=== PATIENT | male | born 1975 | race Caucasian/White ===

== ENCOUNTER 2019-03-30 16:58 | Observation (INO) | payer BC, SELFPAY ==
[2019-03-30 16:58] VITALS: BP 165/98; PULSE 89; RESP 16; TEMP 37.2; O2SAT 97; BMI 35.6
--- NOTE | 2019-03-30 17:14 | EKG12_ITS ---
Test Reason : ABN LABS Blood Pressure : / mmHG Vent. Rate : 083 BPM Atrial Rate : 083 BPM P-R Int : 144 ms QRS Dur : 108 ms QT Int : 360 ms P-R-T Axes : 030 055 048 degrees QTc Int : 423 ms Normal sinus rhythm Poor R wave progression Confirmed by QUANG BARLOW, NADIR ([id number]), publishing editor RITA MENSAH ([id number] on 04/03/2019 6:26:30 AM Referred By: Nadir Pinzon Confirmed By:NADIR DEL RIO MD
--- NOTE | 2019-03-30 17:17 | RAD_ITS ---
STUDY: X-RAY CHEST REASON FOR EXAM: Male, 43 years old. Abnormal enzymes. TECHNIQUE: Single AP portable view of the chest. COMPARISON: None. FINDINGS: The lungs are clear and expanded. There is no demonstrated pleural abnormality. Normal size heart. Normal mediastinum and jayne. Normal visualized pulmonary arteries. Normal visualized aortic arch and descending thoracic aorta. Normal visualized thoracic spine. Normal visualized ribs, clavicles, and shoulders. There is no demonstrated abnormality of the visualized soft tissue structures of the upper abdomen. RAD/Chest 1 View (Portable) IMPRESSION: Normal x-ray examination of the chest. Electronically Signed: Myke Jimenez MD at 17:33 EDT , Service support ,
[2019-03-30 17:36] VITALS: BP 161/97; PULSE 87; RESP 22; O2SAT 96
[2019-03-30] MEDS: Aspirin 81 MG TAB.CHEW 324 MG PO (17:44)
[2019-03-30 17:56] LABS: Absolute Lymphocyte Count 4.74 X10^3/ul (0.83-4.51); Absolute Neutrophil Count 10.3 X10^3/uL (2.0-7.7); Basophil# 0.06 X10^3/uL; Basophil% 0.4 % (0-1); Eosinophil# 0.18 X10^3/uL; Eosinophils% 1.1 % (0-5); Hematocrit 46.9 % (40-54); Hemoglobin 16.4 g/dl (13.0-16.5); Lymphocyte # 4.74 X10^3/ul (4.0); Lymphocyte % 28.7 % (19-41); Mean Corpuscular Hgb 34.2 pg (27.0-32.0); Mean Corpuscular Volume 97.9 fL (80-94); Mean Platelet Vol. 10.5 fl (6.2-12.0); Monocyte# 1.24 X10^3/uL; Monocyte% 7.5 % (0-10); Neutrophil # 10.27 X10^3/uL (2.7-7.7); Neutrophil % 62.1 % (47-70); Platelet Count 286 K/mm3 (150-450); RBC Distribution Width CV 12.8 % (11.6-14.6); RBC Distribution Width SD 45.9 fl (35.1-43.9); Red Blood Count 4.79 M/mm3 (4.6-6.2); White Blood Count 16.5 K/mm3 (4.4-11.0)
[2019-03-30 18:00] LABS: POSITIVE COUNT NO; POSITIVE DIFFERENTIAL NO; POSITIVE MORPHOLOGY NO
[2019-03-30 18:11] LABS: CPK Total, Creatine Kinase 444 U/L (39-308)
--- NOTE | 2019-03-30 18:24 | ED.DCSUM_ITS ---
History of Present Illness Chief Complaint: Abn Labs Informant: Patient Narrative: Patient is presenting from the primary care office secondary to an abnormal lab result. Patient reports that he woke up today and he had a strange feeling. He reports that it is in his lower chest and upper abdomen. He would does not really describe it as a pain, but more just an abnormal feeling. Patient states that this has been persistent throughout the day today, he tried to eat some food and it did not really go away, so he left work and went to urgent care and they recommended that he go see his primary care doctor. Primary care doctor worked the patient up with an EKG and some lab work, lab work showed evidence of an elevated CK, but showed a normal troponin and to the primary care physician recommended the patient come to the emergency department for potential observation admission and stress testing. Patient denies that there is any exertional component to this. He denies any prior similar episodes in the past. Patient is a smoker, denies any premature family history of heart disease, hypertension, diabetes, any DVT or PE risk factors. He is never had a stress test. Review of systems otherwise negative. Past Medical History - Allergies and Home Meds Allergies/Adverse Reactions: Allergies No Known Allergies Allergy (Verified 03/30/19 17:00) Smoking Status: Current every day smoker - Family History Maternal Family History: Reports: No pertinent history Review of Systems All systems negative except as indicated Cardiovascular: Reports: Chest pain Respiratory: Denies: Dyspnea Physical Exam Vital Signs/Narrative: Vital Signs Temp Pulse Resp BP Pulse Ox 03/30/19 17:36 87 22 H 161/97 H 96 03/30/19 16:58 98.9 F 89 16 165/98 H 97 Inital Vital Signs reviewed: Yes General: Well nourished, Well developed, No Acute Distress Head: Normocephalic, Atraumatic Eyes: Perrl, EOMI ENT: Moist mucous membranes, No rhinorrhea Neck: Supple, Nontender Cardiovascular: Regular rate, Regular rhythm, No murmurs, - - 2+ radial pulses bilaterally symmetric Respiratory: No distress, CTA bilaterally, Chest nontender Abdomen: Soft, Nontender, Nondistended, Normal bowel sounds Back: Nontender, Normal Inspection Extremities: Nontender, No edema Skin: Normal color, No rash Neurological: Alert, Oriented x3, Cranial nerves II-XII grossly intact, Normal Strength, Normal Sensation Psychological: Normal affect, Normal Mood Diagnostic/Tx/Re-eval - EKG Initial EKG Interpretation: - - Sinus rhythm of [address] segments, normal T waves, no evidence of acute ischemia or arrhythmia - Medical Decision Making Patient presented secondary to chest pain. Chest pain work-up was obtained, the patient is an outpatient had an elevated CK this was repeated and was found to be downward trending. Patient's EKG shows no ischemic signs. Patient's heart score is 2, but his primary care physician requested that he be admitted for cardiac stress test. I discussed this with the hospitalist, and the patient was admitted for observation. Disposition: Admit to PCU ED Disposition - Plan for ED Patient: Disposition: Acute Care Hospital [facility] Diagnosis: Chest pain
[2019-03-30 18:36] LABS: ALB/GLOB Ratio 0.9 RATIO (0.9-2.4); AST(SGOT) 32 U/L (15-37); Alanine Aminotransfer ALT/SGPT 49 U/L (16-61); Albumin, Serum 3.7 g/dL (3.2-5.0); Alkaline Phosphatase 106 U/L (45-117); Anion Gap 11 (5-15); BUN 11 mg/dL (7-18); BUN/Creat Ratio 11.7 RATIO (10-20); Chloride 106 mmol/L (98-107); Creatinine, Serum 0.94 mg/dL (0.70-1.30); EST Glomerular Filtration Rate 93 mL/min (>60); Est Glom Filt Rate - Afr Amer 112 mL/min (>60); Estimated Creatinine Clearance 104.62 ml/min; Globulin 4.2 g/dL (2.2-4.2); Glucose 84 mg/dL (74-106); Lipase 179 U/L (73-393); Potassium 3.9 mmol/L (3.5-5.1); Protein, Total 7.9 g/dL (6.4-8.2); Sodium Level 140 mmol/L (136-145)
[2019-03-30 19:00] VITALS: BP 145/103; PULSE 78; RESP 26; O2SAT 97
--- NOTE | 2019-03-30 19:32 | PCM.HP.STD ---
Problem List (1) Chest pain Status: Acute Qualifiers: Chest pain type: unspecified Qualified Code(s): R07.9 - Chest pain, unspecified (2) Smoker Status: Chronic History of Present Illness Date of Admission: 03/30/19 Chief Complaint: chest pain, elevated CK The patient is a 43 year old male patient with a past medical history of smoking half pack per day who presents to the emergency room via his primary care physician who had detected abnormal labs of CK in the excess of 500 today. He was sent to the emergency department for observation and admission and possible stress testing. He states he has had some abnormal stress over the past few days but does not elaborate. He describes his pain as lower chest nonradiating and he has difficulty characterizing how it feels. He did spend Saturday evening at a [employer] drinking alcohol and admitted to being dehydrated and fatigued Saturday morning. In the emergency the patient is borderline hypertensive but has not received treatment for this in the past. Initial troponin value is less than 0.015, CBC shows white count elevation of 16,000 the patient is afebrile and chest x-ray is within normal limits. Patient will be placed on observation cycle troponins and stress test done in the morning. Past Medical History Past Medical History (Chronic Problems): Chronic Problems Smoker (Chronic) Allergies No Known Allergies Allergy (Verified 03/30/19 17:00) Home Medications: Ambulatory Orders Medication Instructions Recorded Ranitidine [Zantac] 150 mg PO DAILY 03/30/19 Smoking Status: Current every day smoker - *Family History Maternal History Items: No pertinent history Review of Systems Constitutional: Denies: Chills, Fever, Weight Change HEENT: Denies: Head Aches, Sinus Congestion, Sinus Drainage Cardiovascular: Reports: Chest Pain. Denies: Palpitations Respiratory: Denies: Cough, Shortness of breath at rest, Sputum production Gastrointestinal: Denies: Abdominal Pain, Nausea, Vomiting Genitourinary: Denies: Dysuria Musculoskeletal: Denies: Joint Pain, Joint Tenderness Skin: Denies: Rash, Wounds Neurological: Denies: Numbness, Tingling, Focal weakness Psychiatric: Denies: Anxiety, Depression, Homicidal Ideations, Suicidal Ideations Hematologic/ Lymphatic: Denies: Easy Bruising, Easy Bleeding VTE Information - Inpt Only VTE Present on Admission: No VTE Mechan Device Prophylaxis: None VTE Pharm Prophylaxis ordered?: Yes Patient Problems: Active and Suspected Problems Chest pain (Acute) - Physical Exam General: Alert, Oriented x3, Cooperative HEENT: Atraumatic, Normocephalic Neck: Supple Lungs: Clear to auscultation, Normal air movement Cardiovascular: Regular rate, Normal S1, Normal S2, No murmurs Abdomen: Bowel Sounds Present, Soft, Non Tender Extremities: No edema Skin: No rashes Musculoskeletal: No Tenderness to Palpation of Joints or Extremities Neurological: Neuro grossly intact Psych/Mental Status: Normal Affect, Appropriate Vital Signs Temp Pulse Resp BP Pulse Ox 98.9 F 78 26 H 145/103 H 97 03/30/19 16:58 03/30/19 19:00 03/30/19 19:00 03/30/19 19:00 03/30/19 19:00 Oxygen Delivery Method Room Air Weight: 248 lb 14.43 oz Body Mass Index (BMI) 35.6 Laboratory Tests Past 24 Hrs 03/30/19 03/30/19 03/30/19 17:30 17:30 17:30 WBC 16.5 H RBC 4.79 Hgb 16.4 Hct 46.9 MCV 97.9 H MCH 34.2 H MCHC 35.0 RDW 12.8 RDW Differential 45.9 H Plt Count 286 MPV 10.5 Immature Gran % (Auto) 0.200 Neut % (Auto) 62.1 Lymph % (Auto) 28.7 [place] % (Auto) 7.5 Eos % (Auto) 1.1 Baso % (Auto) 0.4 Absolute Neuts (auto) 10.3 H Absolute Lymphs (auto) 4.74 H Total Counted Not Reportable Sodium 140 Potassium 3.9 Chloride 106 Carbon Dioxide 23.0 Anion Gap 11 BUN 11 Creatinine 0.94 Estim Creat Clear Calc 104.62 Est GFR (MDRD) Af Amer 112 Est GFR (MDRD) Non-Af 93 BUN/Creatinine Ratio 11.7 Glucose 84 Calcium 9.0 Total Bilirubin 0.30 AST 32 ALT 49 Alkaline Phosphatase 106 Total Creatine Kinase 444 H Troponin I < 0.015 Total Protein 7.9 Albumin 3.7 Globulin 4.2 Albumin/Globulin Ratio 0.9 Lipase 179 Assessment/Plan All Active Problems Chest pain (Acute) Chronic conditions 1. Smoker half pack per day Plan 1. Chest pain?Place patient on observation floor cycle troponins. Will order oxygen nitroglycerin and aspirin per protocol. I do not feel morphine is warranted at this time. I explained to the patient the procedure for a nuclear stress test and what to expect in the morning. When troponins are negative nuclear stress testing will be done and if negative patient will be discharged home. 2. Smoking?cessation for smoking was encouraged 3. DVT prophylaxis?low molecular weight heparin has been ordered 4. Borderline hypertensive?advised patient to seek outpatient follow-up care for his possibility of having hypertension. Code Visit OBSV E&M: [id number] Initial observation care L2
--- NOTE | 2019-03-30 19:36 | HP.PCM_ITS ---
Problem List (1) Chest pain Status: Acute Qualifiers: Chest pain type: unspecified Qualified Code(s): R07.9 - Chest pain, unspecified (2) Smoker Status: Chronic History of Present Illness Date of Admission: 03/30/19 Chief Complaint: chest pain, elevated CK The patient is a 43 year old male patient with a past medical history of smoking half pack per day who presents to the emergency room via his primary care physician who had detected abnormal labs of CK in the excess of 500 today. He was sent to the emergency department for observation and admission and possible stress testing. He states he has had some abnormal stress over the past few days but does not elaborate. He describes his pain as lower chest nonradiating and he has difficulty characterizing how it feels. He did spend Saturday evening at a [employer] drinking alcohol and admitted to being dehydrated and fatigued Saturday morning. In the emergency the patient is borderline hypertensi ve but has not received treatment for this in the past. Initial troponin value is less than 0.015, CBC shows white count elevation of 16,000 the patient is afebrile and chest x-ray is within normal limits. Patient will be placed on observation cycle troponins and stress test done in the morning. Past Medical History Past Medical History (Chronic Problems): Chronic Problems Smoker (Chronic) Allergies No Known Allergies Allergy (Verified 03/30/19 17:00) Home Medications: Ambulatory Orders Medication Instructions Recorded Ranitidine [Zantac] 150 mg PO DAILY 03/30/19 Smoking Status: Current every day smoker - *Family History Maternal History Items: No pertinent history Review of Systems Constitutional: Denies: Chills, Fever, Weight Change HEENT: Denies: Head Aches, Sinus Congestion, Sinus Drainage Cardiovascular: Reports: Chest Pain. Denies: Palpitations Respiratory: Denies: Cough, Shortness of breath at rest, Sputum production Gastrointestinal: Denies: Abdominal Pain, Nausea, Vomiting Genitourinary: Denies: Dysuria Musculoskeletal: Denies: Joint Pain, Joint Tenderness Skin: Denies: Rash, Wounds Neurological: Denies: Numbness, Tingling, Focal weakness Psychiatric: Denies: Anxiety, Depression, Homicidal Ideations, Suicidal Ideations Hematologic/ Lymphatic: Denies: Easy Bruising, Easy Bleeding VTE Information - Inpt Only VTE Present on Admission: No VTE Mechan Device Prophylaxis: None VTE Pharm Prophylaxis ordered?: Yes Patient Problems: Active and Suspected Problems Chest pain (Acute) - Physical Exam General: Alert, Oriented x3, Cooperative HEENT: Atraumatic, Normocephalic Neck: Supple Lungs: Clear to auscultation, Normal air movement Cardiovascular: Regular rate, Normal S1, Normal S2, No murmurs Abdomen: Bowel Sounds Present, Soft, Non Tender Extremities: No edema Skin: No rashes Musculoskeletal: No Tenderness to Palpation of Joints or Extremities Neurological: Neuro grossly intact Psych/Mental Status: Normal Affect, Appropriate Vital Signs Temp Pulse Resp BP Pulse Ox 98.9 F 78 26 H 145/103 H 97 03/30/19 16:58 03/30/19 19:00 03/30/19 19:00 03/30/19 19:00 03/30/19 19:00 Oxygen Delivery Method Room Air Weight: 248 lb 14.43 oz Body Mass Index (BMI) 35.6 Laboratory Tests Past 24 Hrs 03/30/19 03/30/19 03/30/19 17:30 17:30 17:30 WBC 16.5 H RBC 4.79 Hgb 16.4 Hct 46.9 MCV 97.9 H MCH 34.2 H MCHC 35.0 RDW 12.8 RDW Differential 45.9 H Plt Count 286 MPV 10.5 Immature Gran % (Auto) 0.200 Neut % (Auto) 62.1 Lymph % (Auto) 28.7 [place] % (Auto) 7.5 Eos % (Auto) 1.1 Baso % (Auto) 0.4 Absolute Neuts (auto) 10.3 H Absolute Lymphs (auto) 4.74 H Total Counted Not Reportable Sodium 140 Potassium 3.9 Chloride 106 Carbon Dioxide 23.0 Anion Gap 11 BUN 11 Creatinine 0.94 Estim Creat Clear Calc 104.62 Est GFR (MDRD) Af Amer 112 Est GFR (MDRD) Non-Af 93 BUN/Creatinine Ratio 11.7 Glucose 84 Calcium 9.0 Total Bilirubin 0.30 AST 32 ALT 49 Alkaline Phosphatase 106 Total Creatine Kinase 444 H Troponin I < 0.015 Total Protein 7.9 Albumin 3.7 Globulin 4.2 Albumin/Globulin Ratio 0.9 Lipase 179 Assessment/Plan All Active Problems Chest pain (Acute) Chronic conditions 1. Smoker half pack per day Plan 1. Chest pain?Place patient on observation floor cycle troponins. Will order oxygen nitroglycerin and aspirin per protocol. I do not feel morphine is warranted at this time. I explained to the patient the procedure for a nuclear stress test and what to expect in the morning. When troponins are negative nuclear stress testing will be done and if negative patient will be discharged home. 2. Smoking?cessation for smoking was encouraged 3. DVT prophylaxis?low molecular weight heparin has been ordered 4. Borderline hypertensive?advised patient to seek outpatient follow-up care for his possibility of having hypertension. Code Visit OBSV E&M: [id number] Initial observation care L2
[2019-03-30 19:58] VITALS: BMI 35.0
--- NOTE | 2019-03-30 20:00 | EKG12_ITS ---
Test Reason : DR PERAZA Blood Pressure : / mmHG Vent. Rate : 066 BPM Atrial Rate : 066 BPM P-R Int : 134 ms QRS Dur : 106 ms QT Int : 378 ms P-R-T Axes : -04 065 054 degrees QTc Int : 396 ms Normal sinus rhythm Poor R wave progression Confirmed by QUANG BARLOW, NADIR ([id number]), video news editor RITA MENSAH ([id number] on 04/03/2019 7:06:47 AM Referred By: Nadir Peraza Confirmed By:NADIR DEL RIO MD
[2019-03-30 20:02] VITALS: PULSE 68
[2019-03-30 20:12] VITALS: BMI 35.0
[2019-03-30 20:30] VITALS: BP 135/86; PULSE 62; RESP 18; TEMP 36.6; O2SAT 98
[2019-03-30 23:00] VITALS: PULSE 66
[2019-03-31] VITALS (7 sets, daily range): BP systolic 111–126; BP diastolic 58–72; PULSE 61–81; RESP 18; TEMP 36.6–36.9; O2SAT 93–98
[2019-03-31] MEDS: Aspirin E.C. 325 MG Tablet PO (05:23)
[2019-03-31] MEDS: Famotidine 20 MG Tablet PO (05:23)
[2019-03-31 05:36] LABS: Hematocrit 47.8 % (40-54); Hemoglobin 16.4 g/dl (13.0-16.5); Mean Corp Hgb Conc 34.3 g/gl (32-36); Mean Corpuscular Hgb 33.4 pg (27.0-32.0); Mean Corpuscular Volume 97.4 fL (80-94); Mean Platelet Vol. 10.6 fl (6.2-12.0); Platelet Count 264 K/mm3 (150-450); RBC Distribution Width SD 45.6 fl (35.1-43.9); Red Blood Count 4.91 M/mm3 (4.6-6.2); White Blood Count 14.3 K/mm3 (4.4-11.0)
[2019-03-31 05:40] LABS: Scan Indicated on CBC? Y/N NO
[2019-03-31 05:48] LABS: International Normalized Ratio 0.9; Prothrombin Time (Protime)PT. 12.3 SECONDS (11.7-14.9)
[2019-03-31 05:49] LABS: Partial Thromboplast Time 25.9 Seconds (24.1-36.2)
--- NOTE | 2019-03-31 05:55 | EKG12_ITS ---
Test Reason : AM EKG Blood Pressure : / mmHG Vent. Rate : 062 BPM Atrial Rate : 062 BPM P-R Int : 142 ms QRS Dur : 104 ms QT Int : 394 ms P-R-T Axes : 042 075 075 degrees QTc Int : 399 ms Normal sinus rhythm Poor R wave progression Confirmed by QUANG BARLOW, NADIR ([id number]), editor trade journal RITA MENSAH ([id number] on 04/03/2019 7:07:49 AM Referred By: Nadir Pinzon Confirmed By:NADIR DEL RIO MD
[2019-03-31 05:56] LABS: ALB/GLOB Ratio 0.9 RATIO (0.9-2.4); AST(SGOT) 25 U/L (15-37); Alanine Aminotransfer ALT/SGPT 46 U/L (16-61); Albumin, Serum 3.2 g/dL (3.2-5.0); Alkaline Phosphatase 97 U/L (45-117); Anion Gap 9 (5-15); BUN 15 mg/dL (7-18); BUN/Creat Ratio 16.6 RATIO (10-20); CPK Total, Creatine Kinase 256 U/L (39-308); Calcium,Total 8.8 mg/dL (8.5-10.1); Chloride 108 mmol/L (98-107); Cholesterol 201 mg/dL (200); EST Glomerular Filtration Rate 97 mL/min (>60); Est Glom Filt Rate - Afr Amer 117 mL/min (>60); Estimated Creatinine Clearance 109.27 ml/min; Globulin 3.6 g/dL (2.2-4.2); Glucose 100 mg/dL (74-106); High Density Lipoprotein 35 mg/dL; Potassium 4.1 mmol/L (3.5-5.1); Protein, Total 6.8 g/dL (6.4-8.2); Sodium Level 143 mmol/L (136-145); Triglycerides 267 mg/dL; Very Low Density Lipoprotein 53 mg/dL (5-40)
[2019-03-31] MEDS: Enoxaparin 40 MG/0.4 ML Syringe SC (09:01)
--- NOTE | 2019-03-31 09:06 | STRESSREP ---
Stress Test Report Date: 03-31-19 Procedure: Exercise tolerance test/imaging study Indications: Chest pain Consent: Per the patient Procedure: The patient exercised on a Luis Eduardo protocol for 10 minutes and 30 seconds completing Stage III and 1 minute and 30 seconds of Stage IV achieving a peak heart rate of 171 bpm (96 % predicted maximal heart rate) with a peak blood pressure 150/82 mmHg and a peak MET capacity of 12 METs. The baseline ECG demonstrated normal sinus rhythm. The peak exercise ECG demonstrated no obvious T changes. There was an isolated PAC during exercise and a rare PAC during recovery. The functional capacity was considered good. There was no complaint of chest discomfort during exercise or recovery. The examination was discontinued secondary to leg discomfort. Impression: 1. Technically adequate (percent predicted maximal heart rate greater than 85%) exercise tolerance test 2. Peak exercise ECG with no obvious ECG changes 3. There was an isolated PAC during exercise and a rare PAC during recovery 4. Nuclear images pending Myocardial perfusion imaging study: Technique: The patient was injected with 14.7 mCi of technetium 99m Cardiolite and subsequently rest SPECT Cardiolite nuclear imaging was obtained in the horizontal long, vertical long, and short axis views. The patient exercised on a Luis Eduardo protocol for 10 minutes and 30 seconds completing Stage III and 1 minute and 30 seconds of Stage IV achieving a peak heart rate of 171 bpm (96 % predicted maximal heart rate) with a peak blood pressure 150/82 mmHg and a peak MET capacity of 12 METs. The patient was injected with 44.8 mCi of technetium 99m Cardiolite and subsequently stress SPECT Cardiolite nuclear imaging was obtained in the horizontal long, vertical long, and short axis views. A gated Cardiolite study at peak stress was obtained. Interpretation: Rest and stress SPECT Cardiolite nuclear imaging status post realignment, normalization, and attenuation correction, demonstrates the appearance at rest and stress of an area of diminished tracer uptake near the apical segments without significant change. There is end systolic thickening and brightening. The gated Cardiolite study demonstrates myocardial thickening and inward wall motion. The reported LVEF is 50 %. Impression: 1. Rest and stress SPECT Cardiolite nuclear imaging demonstrate cardio perfusion changes appearing compatible with the effects of physiologic apical thinning with no myocardial perfusion changes considered diagnostic for associated stress-induced myocardial ischemia or previous myocardial injury/infarction. 2. The gated Cardiolite study reports an LVEF of 50 %. This note was generated with Dragon dictation software. It may contain incorrect words, spelling, and punctuation that were not noted in checking the note before signing.
--- NOTE | 2019-03-31 11:32 | DCINST_ITS ---
- Discharge Diagnoses Current Active Problems: Current Active and Chronic Problems Chest pain (Acute) Smoker (Chronic) You will use the following diet at home:: No restrictions Your food should be the consistency of: Regular Your liquids should be the consistency of: Regular/Thin Discharge Activity: Return to Normal Activity Allergies/Adverse Reactions: Allergies No Known Allergies Allergy (Verified 03/30/19 17:00) Medications to take at Discharge Ranitidine [Zantac] 150 mg PO DAILY 03/30/19 Primary Care Physician: Care Physician,No Primary [Primary Care Provider] - Please follow up with your Primary Care Physician in: 1-2 weeks Test Results: Test results from this visit will be discussed in further detail at your follow- up appointment, if applicable. Please Follow Up With: Orthopedic surgery When: 2 weeks Proposed Discharge Date: 03/31/19
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
== END 2019-03-31 11:31 | disposition home or self-care (01) ==
LOC: ED 18:12 → PCU 22:23
PROVIDERS: Admitting Provider Family Medicine; Emergency Provider Emergency Medicine; Referring Provider Family Medicine; Visit Provider Internal Medicine
DX: R07.89 Other chest pain (principal); F41.9 Anxiety disorder, unspecified; F17.210 Nicotine dependence, cigarettes, uncomplicated; Z79.899 Other long term (current) drug therapy; M75.102 Unspecified rotator cuff tear or rupture of left shoulder, not specified as traumatic; M75.101 Unspecified rotator cuff tear or rupture of right shoulder, not specified as traumatic
CPT/HCPCS: 36415; 71045; 78452; 80053; 80061; 82550; 83690; 84484; 85025; 85027; 85610; 85730; 93005; 93017; 96372; 99218; 99283; 99406; A9500; A4216; G0378

== ENCOUNTER → 2019-03-30 | Outpatient (CLI) | payer BC, SELFPAY ==
[2019-03-30 12:52] LABS: CPK Total, Creatine Kinase 506 U/L (39-308)
== END | disposition home or self-care (01) ==
LOC: LABSPEC 12:18
PROVIDERS: Referring Provider Family Medicine; Visit Provider Family Medicine
DX: R07.89 Other chest pain (principal)
CPT/HCPCS: 82550; 84484

== ENCOUNTER 2021-02-01 14:05 | Outpatient (RCR) | payer BC, SELFPAY | END 2021-04-04 23:59 | LOC: IMMUN 14:05 | PROVIDERS: PCP Family Medicine; Visit Provider Family Medicine | DX: Z23 Encounter for immunization (principal) | CPT/HCPCS: 0001A; 0002A; 91300 ==